=== PATIENT | male | born 1980 | race Caucasian/White ===

== ENCOUNTER → 2016-12-08 | Day surgery (SDC) | payer OTHER ==
[~2016-12-08] MED LIST: IV RINGERS,LACTATED 1000ML 1,000 ML IV SCH; LIDOCAINE 2% PF Vial for OR 5 ML VIAL. ONE; LOPE2CAP PO; MESA0.37 PO; PANT20TA2 PO; PROPOFOL 0 ML IV ONE; PROPOFOL 20 ML IV ONE; RANI150T6 PO
[2016-12-08 07:55] VITALS: BP 123/68
--- NOTE | 2016-12-09 08:47 | CONS ---
DATE OF CONSULTATION: 12/08/2016 REASON FOR CONSULTATION: Epigastric abdominal pain, hep C and a history of Crohn's, status post resection. HISTORY OF PRESENT ILLNESS: A 36-year-old male whose past medical history is significant for Crohn's disease, status post resection for apparent perforation seen with persistent epigastric pain, which has been present now for approximately 12 years. It is worse after meals, particularly in the evening despite Protonix and Zantac therapy. Does not use any anti-inflammatory medications or use tobacco. Has risk factors for ulcers at this time. Denies any melena and/or hematochezia, dysphagia, odynophagia. Weight and appetite have been stable. He does note he has had hep C, has been treated previously unsuccessfully with interferon. With the continued symptoms, he is here today. PAST MEDICAL HISTORY: Chronic abdominal pain, hep C, Crohn's ileitis, status post resection. ALLERGIES: CEPHALEXIN. MEDICATIONS: Include loperamide, ____, Protonix and Zantac as per the medication reconciliation sheet. FAMILY AND SOCIAL HISTORY: He is presently incarcerated. Does not drink or smoke on a regular basis. Family history noncontributory. REVIEW OF SYSTEMS: Per records. PHYSICAL EXAMINATION: GENERAL: Reveals a thin white male who has multiple tattoos. VITAL SIGNS: Temp is 97.9, pulse 81, respiratory rate is 18. HEENT: Reveals a normocephalic, atraumatic head. Pupils and extraocular muscles not tested. Sclerae anicteric. NECK: Supple. LUNGS: Clear. CARDIOVASCULAR: Reveals S1, S2 without S3, S4 or appreciable murmur. ABDOMEN: Reveals a soft abdomen, normal bowel sounds, without appreciable hepatosplenomegaly with ____ chronic liver disease with epigastric tenderness to deep palpation. EXTREMITIES: Reveals no cyanosis, clubbing or edema. IMPRESSION: Epigastric abdominal pain with a history of Crohn's. Differential includes peptic ulcer disease, gastroparesis, cirrhosis with his hep C as well as recurrent Crohn's ____. We will therefore recommend upper endoscopy to further assess. If this is unrevealing, then further consideration of hepatobiliary imaging would be pursued. I would like to thank [facility] for allowing me to participate in this patient's care. CAROLINA LINDQUIST MD DR: Zee JOB#: [id number] / [id number]
== END | disposition home or self-care (01) ==
LOC: ENDOS 05:36 → EEVIPCON 07:00
PROVIDERS: ATTEND Internal Medicine Gastroenterology
DX: K29.50 Unspecified chronic gastritis without bleeding (principal); K21.9 Gastro-esophageal reflux disease without esophagitis
CPT/HCPCS: 43235; 99156; J2704

== ENCOUNTER → 2019-09-14 | Day surgery (SDC) | payer OTHER ==
[~2019-09-14] MED LIST changes: +LIDOCAINE 2% PF 5 ML VIAL. ONE; -LIDOCAINE 2% PF Vial for OR 5 ML VIAL. ONE; -MESA0.37 PO; +MESA0.372 PO; +OMEP20CA16 PO; -PROPOFOL 0 ML IV ONE; +PROPOFOL 40 ML IV ONE; +RANI-376 PO; -RANI150T6 PO
[2019-09-14 09:28] VITALS: BP 100/59
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
--- NOTE | 2019-09-17 11:07 | PATHOLOGY ---
[facility] Accession Number: [id number] . 01 Material submitted: . colon - RANDOM COLON BX . 01 Clinical history: . Abdominal pain . 02 Diagnosis: Colon, random biopsies: - Multiple fragments of colonic mucosa with no significant histopathologic diagnosis. (SKM:pit 09/17/2019) QTP 09/17/2019 0927 Local . 02 Electronically signed: . Raimundo Austin MD, Pathologist NPI- [id number] . 01 Gross description: . Received in formalin labeled "Valeriy Ashford, random colon BX," are multiple segments of bright soft tissue measuring 1.8 x 1.0 x 0.2 cm in aggregate dimensions. The specimen is filtered and entirely submitted in cassette A1. (TSD; 09/14/2019) TOB/TOB 09/14/2019 1940 Local . 02 Pathologist provided ICD-10: R10.9 . 02 CPT . 562681 Specimen Comment: A courtesy copy of this report has been sent to [phone], [phone] Specimen Comment: [id number] Specimen Comment: Report sent to and Specimen Comment: A duplicate report has been generated due to demographic updates. Performed at: 01 [facility] [address], [place], [place] [id number] MD J Luis Pena MD Phone: [phone] Performed at: 02 [facility] [place] [address] [place], [place] [id number] MD Maynor Schmidt MD Phone: [phone]
== END | disposition home or self-care (01) ==
LOC: EEVIPCON 07:00 → ENDOS 07:08
PROVIDERS: ATTEND Internal Medicine Gastroenterology
DX: K50.80 Crohn's disease of both small and large intestine without complications (principal); K64.0 First degree hemorrhoids; K63.89 Other specified diseases of intestine; K21.9 Gastro-esophageal reflux disease without esophagitis; B19.20 Unspecified viral hepatitis C without hepatic coma; Z98.890 Other specified postprocedural states; Z88.8 Allergy status to other drugs, medicaments and biological substances
CPT/HCPCS: 45380; 88305; J2001; J2704